=== PATIENT | female | born 1990 | race African-American/Black ===

== ENCOUNTER 2019-06-30 09:09 | Emergency (ER) | payer OTHER ==
[~2019-06-30] VITALS: Ht 172.7 cm; Wt 56.7 kg
[~2019-06-30 09:09] MED LIST: FLAGYL 250 MG250 MG PO; PRENATAL PO
[2019-06-30] MEDS ORDERED: DOXYCYCLINE 10100 MG PO (11:56)
[2019-06-30] MEDS ORDERED: NORCO 5-325 TA1 EAC1 PO (11:56)
[2019-06-30] MEDS ORDERED: FLAGYL500 M1 PO (11:56)
[2019-06-30 12:26] VITALS: BP 170/77
== END 2019-06-30 12:30 | disposition home or self-care (01) ==
LOC: ER 09:09
DX: N76.4 Abscess of vulva (principal); Z88.0 Allergy status to penicillin